=== PATIENT | female | born 1975 | race Two or more races ===

== ENCOUNTER → 2021-04-20 | Outpatient (CLI) | payer OTHER ==
--- NOTE | 2021-04-20 12:38 | RAD ---
EXAM: CT HEAD WITHOUT CONTRAST. HISTORY: Fall, head injury. TECHNIQUE: Computed tomography of the head was performed without intravenous contrast. One or more of the following individualized dose reduction techniques were utilized for this examination: 1. Automated exposure control. 2. Adjustment of the mA and/or kV according to patient size. 3. Use of iterative reconstruction technique. COMPARISON: None. FINDINGS: There is no intracranial hemorrhage. Rivas-white differentiation is preserved. The ventricle s are normal in size and position. The visualized paranasal sinuses appear clear. The orbits are unremarkable. There is a small amount o f fluid in the right mastoid air cells. The calvarium reveals no suspicious lesions. IMPRESSION: 1. No acute intracranial findings. Electronically signed by: Bhumi Meier MD (04/20/2021 12:36 PM) [id number]
== END ==
LOC: CT 12:01
PROVIDERS: ATTEND Preventive Medicine Occupational Medicine
DX: S00.81XA Abrasion of other part of head, initial encounter (principal); W19.XXXA Unspecified fall, initial encounter; Y93.89 Activity, other specified; Y92.89 Other specified places as the place of occurrence of the external cause; Y99.8 Other external cause status
CPT/HCPCS: 70450